=== PATIENT | male | born 2000 | race Caucasian/White ===

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

== ENCOUNTER 2019-01-04 10:37 | Emergency (ER) | payer OTHER ==
[2019-01-04 10:46] VITALS: BP 114/67
--- NOTE | 2019-01-04 11:23 | ED Physician Documentation ---
PD HPI LOWER EXT INJURY - Stated complaint Stated Complaint: FOOT PX - Chief complaint Chief Complaint: Ext Problem - History obtained from History obtained from: Patient, Family - History of Present Illness PD HPI LOW EXT INJURY LOCATION: Left, Foot Type of injury: Fall Where injury occurred: Other (gym) Timing - onset: Last night Timing - duration: Hours Timing - details: Abrupt onset, Still present Improved by: Rest, Immobilization Worsened by: Moving, Palpating Associated symptoms: Swelling. No: Weakness, Numbness Similar symptoms before: Diagnosis (foot fracture) Recently seen: Not recently seen - Additional information Additional information: 18-year-old male with a history of osteogenesis imperfecta was playing basketball yesterday he came down hard on his left foot and has pain to the dorsum on the lateral aspect of the foot. He has had fracture previously and he is concerned about the possibility of fracture today. He is having some difficulty walking on it but he is able to bear some weight on it. Review of Systems Constitutional: denies: Fever, Chills Nose: denies: Congestion Respiratory: denies: Cough GI: denies: Vomiting PD PAST MEDICAL HISTORY - Past Medical History Past Medical History: Yes Cardiovascular: Other Psych: ADD/ADHD Musculoskeletal: Other - Past Surgical History Past Surgical History: Yes - Present Medications Home Medications: Ambulatory Orders Medication Instructions Recorded Confirmed No Known Home Medications 01/04/19 01/04/19 - Allergies Allergies/Adverse Reactions: Allergies Allergy/AdvReac Type Severity Reaction Status Date / Time No Known Drug Allergies Allergy Verified 01/04/19 10:46 - Social History Does the pt smoke?: No Smoking Status: Never smoker Does the pt drink ETOH?: No Does the pt have substance abuse?: No - Immunizations Immunizations are current?: Yes - POLST Patient has POLST: No PD ED PE NORMAL - Vitals Vital signs reviewed: Yes (normal ) - General General: No acute distress, Well developed/nourished - HEENT HEENT: Atraumatic, PERRL, EOMI - Respiratory Respiratory: No respiratory distress - Derm Derm: Normal color, Warm and dry, No rash - Extremities Extremities: No deformity, Other (There is swelling and point tenderness over the dorsum of the left foot laterally. There is specifically no tenderness over the proximal 5th MT. Distal n/v is intact. No pain over the malleoli .) - Neuro Neuro: Alert and oriented X 3, claim representative 2-12 intact, No motor deficit, No sensory deficit, Normal speech Eye Opening: Spontaneous Motor: Obeys Commands Verbal: Oriented GCS Score: 15 - Psych Psych: Normal mood, Normal affect Results - Vitals Vitals: Vital Signs - 24 hr 01/04/19 10:43 Temperature 36.2 C L Heart Rate 82 Respiratory 16 Rate Blood Pressure 114/67 O2 Saturation 98 Oxygen O2 Source Room air - Rads (name of study) left foot Radiology: Prelim report reviewed (Impression: Normal left foot radiography. If symptoms persist suggest follow-up imaging in 10 to 14 days time.), EMP read indepedently, See rad report PD MEDICAL DECISION MAKING - ED course Complexity details: reviewed old records, reviewed results, re-evaluated patient, considered differential, d/w patient, d/w family ED course: 18-year-old male with an injury to his left foot and a history of osteogenesis imperfecta does not have obvious fracture on plain films of his foot. He is placed into a walking boot. Departure - Departure Disposition: 01 Home, Self Care Clinical Impression: Foot sprain Qualifiers: Encounter type: initial encounter Laterality: left Qualified Code(s): S93.602A - Unspecified sprain of left foot, initial encounter Condition: Stable Instructions: ED Sprain Foot, ED Boot Aircast Walker Follow-Up: [facility] [Provider Group]
--- NOTE | 2019-01-04 11:25 | XRAY Report ---
Reason: foot pain, injury Procedure Date: 01/04/2019 Accession Number: [id number] / [id number] Procedure: XR - Foot 3 View LT CPT Code: FULL RESULT: EXAM: LEFT FOOT RADIOGRAPHY EXAM DATE: 01/04/2019 10:53 AM. CLINICAL HISTORY: Foot pain, injury. COMPARISON: FOOT 3 VIEW LT 09/07/2015 2:04 PM. TECHNIQUE: 3 views. FINDINGS: Bones: No fractures or bone lesions. Joints: No subluxations. Soft Tissues: No soft tissue swelling. IMPRESSION: Normal left foot radiography. If symptoms persist suggest follow-up imaging in 10-14 days time. RADIA
== END 2019-01-04 11:34 | disposition home or self-care (01) ==
LOC: ED 10:37
DX: S93.602A Unspecified sprain of left foot, initial encounter (principal); X58.XXXA Exposure to other specified factors, initial encounter; Y93.67 Activity, basketball; Y92.39 Other specified sports and athletic area as the place of occurrence of the external cause
CPT/HCPCS: 99282; 99283

== ENCOUNTER 2019-06-15 13:37 | Emergency (ER) | payer OTHER ==
[2019-06-15 13:46] VITALS: BP 129/75
--- NOTE | 2019-06-15 14:19 | ED Physician Documentation ---
History of Present Illness - Stated complaint Stated Complaint: RT WRIST PX - Chief complaint Chief Complaint: Ext Problem - History obtained from History obtained from: Patient - History of Present Illness Timing: Yesterday Pain level max: 5 Pain level now: 4 - Additonal information Additional information: 18-year-old male with a history of osteogenesis impaired states that he injured his right wrist while hanging drywall yesterday. Mild swelling and bruising today. Is on the ulnar aspect of the right wrist. Worse with movement and better with rest. Review of Systems Constitutional: denies: Fever Skin: denies: Rash Musculoskeletal: denies: Neck pain, Back pain Neurologic: denies: Focal weakness, Numbness PD PAST MEDICAL HISTORY - Past Medical History Past Medical History: Yes Cardiovascular: Other Psych: ADD/ADHD Musculoskeletal: Other Other Past Medical History: osteogenesis imperfecta - Past Surgical History Past Surgical History: Yes - Present Medications Home Medications: Ambulatory Orders Medication Instructions Recorded Confirmed No Known Home Medications 01/04/19 06/15/19 - Allergies Allergies/Adverse Reactions: Allergies Allergy/AdvReac Type Severity Reaction Status Date / Time No Known Drug Allergies Allergy Verified 01/04/19 10:46 - Social History Does the pt smoke?: No Smoking Status: Never smoker Does the pt drink ETOH?: No Does the pt have substance abuse?: No - Immunizations Immunizations are current?: Yes - POLST Patient has POLST: No PD ED PE NORMAL - Vitals Vital signs reviewed: Yes - General General: Alert and oriented X 3, No acute distress - Derm Derm: Warm and dry - Extremities Extremities: Other (Mild swelling and ecchymosis to the ulnar aspect of the right wrist. Neurovascular intact. Mild tenderness At the ulnar styloid. Otherwise normal examination of the forearm, wrist and hand.) - Neuro Neuro: Alert and oriented X 3 Results - Vitals Vitals: Vital Signs - 24 hr 06/15/19 13:43 Temperature 36.5 C Heart Rate 84 Respiratory 18 Rate Blood Pressure 129/75 O2 Saturation 100 Oxygen O2 Source Room air - Rads (name of study) Right wrist x-ray Radiology: Prelim report reviewed, EMP read contemporaneously, See rad report (No acute fractures) PD MEDICAL DECISION MAKING - ED course Complexity details: reviewed results, considered differential, d/w patient ED course: Patient with what appears to be a right wrist sprain. No acute fractures on x- ray. Will place in a velcro splint for comfort. Patient counseled regarding signs and symptoms for which I believe and urgent re-evaluation would be necessary. Patient with good understanding of and agreement to plan and is comfortable going home at this time This document was made in part using voice recognition software. While efforts are made to proofread this document, sound alike and grammatical errors may occur. Departure - Departure Disposition: Home, Self Care Clinical Impression: Right wrist sprain Qualifiers: Encounter type: initial encounter Qualified Code(s): S63.501A - Unspecified sprain of right wrist, initial encounter Condition: Good Instructions: ED Sprain Wrist Follow-Up: Your,doctor in 1 week [Other] Comments: You can wear the splint as needed for comfort. Return if you worsen. There are no acute findings on your x-ray today.
--- NOTE | 2019-06-15 14:23 | XRAY Report ---
Reason: Trauma, bruising pain Procedure Date: 06/15/2019 Accession Number: [id number] / [id number] Procedure: XR - Wrist 4 View RT CPT Code: Final Report FULL RESULT: EXAM: RIGHT WRIST RADIOGRAPHY. EXAM DATE: 06/15/2019 01:44 PM. CLINICAL HISTORY: Trauma, bruising pain. COMPARISON: WRIST 4 VIEW RT 12/29/2014 1:19 PM. TECHNIQUE: 3 views. FINDINGS: Bones: Normal. No fractures or bone lesions. Joints: Normal. No subluxations. Soft Tissues: Normal. No soft tissue swelling. IMPRESSION: Normal wrist radiography. RADIA
== END 2019-06-15 15:01 | disposition home or self-care (01) ==
LOC: ED 13:37
DX: S63.501A Unspecified sprain of right wrist, initial encounter (principal); X58.XXXA Exposure to other specified factors, initial encounter; Y93.H3 Activity, building and construction; Y99.0 Civilian activity done for income or pay
CPT/HCPCS: 1040M; 73110; 99283

== ENCOUNTER 2020-01-10 08:21 | Emergency (ER) | payer OTHER ==
[2020-01-10 08:34] VITALS: BP 114/76
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
== END 2020-01-10 08:51 | disposition home or self-care (01) ==
LOC: ED 08:21
DX: S46.912A Strain of unspecified muscle, fascia and tendon at shoulder and upper arm level, left arm, initial encounter (principal); V89.2XXA Person injured in unspecified motor-vehicle accident, traffic, initial encounter
CPT/HCPCS: 99281; 99282

== ENCOUNTER 2020-05-03 11:27 | Emergency (ER) | payer OTHER ==
--- NOTE | 2020-05-03 11:48 | ED Physician Documentation ---
PD HPI UPPER EXT INJURY - Stated complaint Stated Complaint: SHOULDER PX - Chief complaint Chief Complaint: Trauma Ext - History obtained from History obtained from: Patient - History of Present Illness Location: Left, Shoulder Type of injury: Fall Where injury occurred: Other (snowbording) Timing - onset: Yesterday Timing - duration: Days (1) Timing - details: Abrupt onset, Still present Improved by: Rest, Immobilization Worsened by: Moving, Palpating Associated symptoms: No: Weakness, Numbness, Tingling, Swelling Contributing factors: No: Anticoagulated Similar symptoms before: Diagnosis (fracture) Recently seen: Not recently seen - Additonal information Additional information: 19-year-old male with a history of osteogenesis imperfecta was snowboarding yesterday had a fall injured his left shoulder he is now unable to abduct his shoulder without significant pain and has pain with palpation of the area as well.The patient has not otherwise been ill recently and he did not have other injury associated with fall. Review of Systems Constitutional: denies: Fever Eyes: denies: Decreased vision Ears: denies: Ear pain Nose: denies: Congestion Throat: denies: Sore throat Cardiac: denies: Chest pain / pressure, Palpitations Respiratory: denies: Dyspnea, Cough GI: denies: Abdominal Pain, Nausea, Vomiting, Diarrhea Skin: denies: Rash Musculoskeletal: reports: Joint pain. denies: Neck pain, Back pain, Extremity swelling, Joint swelling Neurologic: denies: Generalized weakness, Focal weakness, Numbness PD PAST MEDICAL HISTORY - Past Medical History Cardiovascular: Other Psych: ADD/ADHD Musculoskeletal: Other - Past Surgical History Past Surgical History: Yes - Present Medications Home Medications: Ambulatory Orders Medication Instructions Recorded Confirmed No Known Home Medications 01/04/19 05/03/20 - Allergies Allergies/Adverse Reactions: Allergies Allergy/AdvReac Type Severity Reaction Status Date / Time No Known Drug Allergies Allergy Verified 05/03/20 11:32 - Social History Does the pt smoke?: No Smoking Status: Never smoker Does the pt drink ETOH?: No Does the pt have substance abuse?: No - Immunizations Immunizations are current?: Yes - POLST Patient has POLST: No PD ED PE NORMAL - Vitals Vital signs reviewed: Yes (hypertensive ) - General General: Alert and oriented X 3, No acute distress, Well developed/nourished - HEENT HEENT: Atraumatic, PERRL, EOMI - Neck Neck: Supple, no meningeal sign, No bony TTP - Respiratory Respiratory: No respiratory distress - Derm Derm: Normal color, Warm and dry, No rash - Extremities Extremities: No deformity, No edema, Other (There is tenderness to the left shoulder but no specifically to the proximal humerus. He is able to tolerate passive ROM and able to hold the arm in abduction but with pain. Distal n/v intact. ) - Neuro Neuro: Alert and oriented X 3, manager style 2-12 intact, No motor deficit, No sensory deficit, Normal speech Eye Opening: Spontaneous Motor: Obeys Commands Verbal: Oriented GCS Score: 15 - Psych Psych: Normal mood, Normal affect Results - Vitals Vitals: Vital Signs - 24 hr 05/03/20 05/03/20 11:33 13:07 Temperature 37.1 C Heart Rate 71 62 Respiratory 19 16 Rate Blood Pressure 149/128 H 130/90 H O2 Saturation 100 98 Oxygen O2 Source Room air - Rads (name of study) scapula Radiology: Prelim report reviewed (Impression: Mid scapular fracture, visible on the transscapular view, mildly displaced. No additional fracture found. Findings called to the emergency room physician caring for the patient.), EMP read indepedently, See rad report PD MEDICAL DECISION MAKING - ED course Complexity details: reviewed old records, reviewed results, re-evaluated patient, considered differential, d/w patient, d/w commercial sales consultant (Marii recommends conservative management and follow up) ED course: 19-year-old male with a history of osteogenesis imperfecta was snowboarding fell and injured his left shoulder. He is found to have a minimally displaced fracture of the left scapula and conservative treatment is undertaken with a sling. He does not have pain out of control. He is given a note for work for no use of the left arm for 6 weeks. Departure - Departure Disposition: 01 Home, Self Care Clinical Impression: Scapular fracture Qualifiers: Encounter type: initial encounter Scapula location: body Fracture type: closed Fracture alignment: nondisplaced Laterality: left Qualified Code(s): S42.115A - Nondisplaced fracture of body of scapula, left shoulder, initial encounter for closed fracture Condition: Stable Instructions: ED Immobilizer Shoulder, ED Fx Shoulder Follow-Up: Fritz Colvin MD [Provider Admit Priv/Credential] - Forms: Activity restrictions Discharge Date/Time: 05/03/20 13:36
--- NOTE | 2020-05-03 12:13 | XRAY Report ---
PROCEDURE: Shoulder 3 View LT INDICATIONS: fall snowbording shoulder pain TECHNIQUE: 3 views of the shoulder were acquired. COMPARISON: None chest plain film imaging from March 2015.. FINDINGS: Bones: No fractures or dislocations. No suspicious bony lesions. Visualized ribs appear intact. Soft tissues: No suspicious soft tissue calcifications. IMPRESSION: Normal examination, source of current pain after snowboarding trauma is not found. If th ere is concern for ligamentous laxity due to injury at the acromioclavicular ligament or coracoclavic ular ligament follow-up weightbearing views may be warranted. Reviewed by: Mamadou Melendez MD on 05/03/2020 12:11 PM PST Approved by: Mamadou Melendez MD on 05/03/2020 12:11 PM PST Station ID: [id number]
[2020-05-03 13:07] VITALS: BP 130/90
--- NOTE | 2020-05-03 13:12 | XRAY Report ---
PROCEDURE: Scapula 2 View LT INDICATIONS: SCAPULA FX TECHNIQUE: 2 views of the scapula were acquired. COMPARISON: Shoulder plain films earlier today FINDINGS: Bones: There is a mildly displaced mid scapular fracture, seen on the transverse scapular view.. No suspicious bony lesions. Visualized ribs appear intact. Soft tissues: Overlying soft tissues appear normal. IMPRESSION: Mid scapular fracture, visible on the transscapular view, mildly displaced. No additional fracture fo und. Findings called to the emergency room physician caring for the patient. Reviewed by: Mamadou Melendez MD on 05/03/2020 1:10 PM [facility] Approved by: Mamadou Melendez MD on 05/03/2020 1:10 PM [facility] Station ID: [id number]
--- OUTSIDE RECORDS SUMMARY | 2020-05-08 01:38 | EXTERNAL MEDICAL SUMMARY RPT | Continuity of Care Document ---
:2000 Demographics Phone Unavailable Preferred Language Romansh Marital Status Unknown Restorationist Affiliation Unknown Race Unknown Ethnic Group Unknown Author Organization [place] Address [address] [place] [phone] Phone Support Name Relationship Address Phone SAFE Unavailable Unavailable Unavailable Problems date description facility 2019-01-04 10:37 UNSPECIFIED SPRAIN OF LEFT FOOT, [facility] INITIAL ENCOUNTER 2019-01-04 10:37 UNSPECIFIED INJURY OF LEFT FOOT, [facility] INITIAL ENCOUNTER 2019-01-04 10:37 EXPOSURE TO OTHER SPECIFIED [facility] FACTORS, INITIAL ENCOUNTER 2019-01-04 10:37 [employer] [facility] PL[facility] 2019-01-04 10:37 ACTIVITY, BASKETBALL [facility] 2019-06-15 13:37 UNSPECIFIED SPRAIN OF RIGHT WRIST, i [facility] INITIAL ENCOUNTER 2019-06-15 13:37 UNSP INJURY OF RIGHT WRIST, HAND [facility] AND FINGER(S), INIT ENCNTR 2019-06-15 13:37 EXPOSURE TO OTHER SPECIFIED [facility] FACTORS, INITIAL ENCOUNTER 2019-06-15 13:37 ACTIVITY, BUILDING AND [facility] CONSTRUCTION 2019-06-15 13:37 CIVILIAN ACTIVITY DONE FOR INCOME formerly [facility] OR PAY 2020-01-10 08:21 PAIN IN LEFT SHOULDER [facility] 2020-01-10 08:21 STRAIN UNSP MUSC/FASC/TEND AT [facility] SHLDR/UP ARM, LEFT ARM, INIT 2020-01-10 08:21 [facility], TRAFFIC, INIT Allergies date description facility ACETAMINOPHEN [facility] ADHESIVE TAPE [facility] [place] ELASTIC BANDAGE [facility] GABAPENTIN [facility] HYMENOPTERA ALLERGENIC EXTRACT [facility] MORPHINE [facility] [place] NORTRIPTYLINE [facility] NSAIDS (NON-STEROIDAL ANTI-INFLAMMATORY DRUG) [facility] PENICILLINS [facility] PREGABALIN [facility] SUMATRIPTAN [facility] TOPIRAMATE [facility] PROCHLORPERAZINE [facility] No Known Drug Allergies [facility] Social History date description facility [id number]
== END 2020-05-03 13:36 | disposition home or self-care (01) ==
LOC: ED 11:27
DX: S42.115A Nondisplaced fracture of body of scapula, left shoulder, initial encounter for closed fracture (principal); V00.311A Fall from snowboard, initial encounter; Y93.23 Activity, snow (alpine) (downhill) skiing, snowboarding, sledding, tobogganing and snow tubing
CPT/HCPCS: 99283; 99284

== ENCOUNTER 2020-06-24 07:00 | Outpatient (CLI) | payer OTHER ==
--- NOTE | 2020-06-24 15:44 | XRAY Report ---
PROCEDURE: Scapula 2 View LT INDICATIONS: LEFT SCAPULA FRACTURE TECHNIQUE: 2 views of the scapula were acquired. COMPARISON: X-ray scapula 05/03/2020 FINDINGS: Bones: There is sclerosis indicative of interval healing with stable alignment of previously displace d scapular fracture. No suspicious bony lesions. Visualized ribs appear intact. Soft tissues: Overlying soft tissues appear normal. IMPRESSION: Interval healing with stable alignment of mildly displaced scapular fracture. Reviewed by: Carol Nelson MD on 06/24/2020 3:43 PM PST Approved by: Carol Nelson MD on 06/24/2020 3:43 PM [facility] Station ID: [id number]
== END 2020-06-24 23:59 | disposition home or self-care (01) ==
LOC: DI.N 07:00
PROVIDERS: ATTEND Orthopaedic Surgery
DX: S42.102D Fracture of unspecified part of scapula, left shoulder, subsequent encounter for fracture with routine healing (principal)